=== PATIENT | female | born 1995 | race Hispanic/Latino ===

== ENCOUNTER 2016-11-19 17:53 | Emergency (ER) | payer OTHER ==
[~2016-11-19] VITALS: Ht 162.6 cm; Wt 104.5 kg
[2016-11-19] MEDS ORDERED: METOCLOPRAMIDE INJ 10MG/2ML VIAL (J2765) IV ONE (18:30)
[2016-11-19] MEDS ORDERED: diphenhydrAMINE INJ 50MG/ML VIAL (J1200) IV ONE (18:30)
[2016-11-19] MEDS ORDERED: NS 1,000 ML IV ONE (18:30)
[2016-11-19] MEDS ORDERED: KETOROLAC 30 MG/ML VIAL (J1885) IV ONE (18:30)
[2016-11-19 19:01] LABS: BASO % 0.3 % (0.0-1.0); EOS # 0.3 K/mm3 (0.0-0.50); LARGE UNSTAINED CELL # 0.1 K/mm3 (0.0-0.4); LARGE UNSTAINED CELL % 1.2 % (0.0-4.0); LYMPH % 28.1 % (24.0-44.0); MEAN CORPUSCULAR HEMOGLOBIN 27.8 pg (27.0-33.0); MEAN CORPUSCULAR HGB CONC 32.5 g/dl (32.0-36.5); MEAN CORPUSCULAR VOLUME 85.5 fl (80.0-96.0); MONO # 0.4 K/mm3 (0.0-0.8); MONO % 3.7 % (0.0-5.0); NEUTROPHILS # 6.4 K/mm3 (1.8-7.7); NEUTROPHILS % 63.7 % (36.0-66.0); PLATELET COUNT, AUTOMATED 357 k/mm3 (150-450); RED CELL DISTRIBUTION WIDTH 12.9 % (11.5-14.5); WHITE BLOOD COUNT 10.1 K/mm3 (4.0-10.0)
[2016-11-19 19:20] LABS: CONTROL LINE HCG INT CTR LINE PRESENT
[2016-11-19 19:25] LABS: METHADONE URINE NEGATIVE (NEGATIVE)
[2016-11-19 19:43] LABS: ALBUMIN/GLOBULIN RATIO 1.14 (1.00-1.93); ALKALINE PHOSPHATASE 59 U/L (45-117); ALT/SGPT 25 U/L (12-78); ANION GAP 6 MEQ/L (8-16); AST/SGOT 18 U/L (15-37); BILIRUBIN,DIRECT < 0.1 MG/DL (0.0-0.2); BILIRUBIN,TOTAL 0.3 MG/DL (0.2-1.0); BLOOD UREA NITROGEN 11 MG/DL (7-18); CALCIUM LEVEL 9.2 MG/DL (8.5-10.1); CARBON DIOXIDE LEVEL 29 MEQ/L (21-32); CHLORIDE LEVEL 105 MEQ/L (98-107); CREATININE FOR GFR 0.88 MG/DL (0.55-1.02); GLUCOSE, FASTING 97 MG/DL (70-105); SODIUM LEVEL 140 MEQ/L (136-145); TOTAL PROTEIN 7.5 GM/DL (6.4-8.2)
[2016-11-19 19:44] LABS: POTASSIUM SERUM 4.6 MEQ/L (3.5-5.1)
--- NOTE | 2016-11-19 20:10 | REPUSA ---
CLINICAL HISTORY: AMS. TECHNIQUE: Multiple axial brain CT scan sections were obtained from base to vertex without contrast a dministration. COMMENTS: The study shows normal configuration of sella turcica. There are no intra or extra-axial collections. There is no mass effect or midline shift. There is no evidence of hematoma formation. No hydrocephal us is present. No abnormal calcifications are noted. No significant abnormalities are seen either in the posterior fossa or supratentorial compartment. The sinuses and mastoid air cells are patent. IMPRESSION: No evidence of acute intracranial pathology. Thank you for your kind referral of this patient.
[2016-11-19] MEDS ORDERED: REGL10TA6 PO (20:42)
[2016-11-19 20:51] VITALS: BP 141/68
== END 2016-11-19 20:53 | disposition home or self-care (01) ==
LOC: M ED 17:53
DX: R51 Headache (principal)
CPT/HCPCS: 70450; 80048; 80076; 80307; 81001; 84443; 84703; 85025; 94760; 96361; 96374; 96375; 99283; G0480; J1200; J1885; J2765

== ENCOUNTER 2017-02-22 13:01 | Emergency (ER) | payer OTHER ==
[~2017-02-22] VITALS: Ht 162.6 cm; Wt 99.0 kg
[~2017-02-22 13:01] MED LIST: REGL10TA6 PO
[2017-02-22 16:11] LABS: MEAN CORPUSCULAR HEMOGLOBIN 27.7 pg (27.0-33.0); MEAN CORPUSCULAR HGB CONC 32.5 g/dl (32.0-36.5); PLATELET COUNT, AUTOMATED 376 10^3/uL (150-450); RED CELL DISTRIBUTION WIDTH 13.4 % (11.5-14.5); WHITE BLOOD COUNT 11.3 10^3/uL (4.0-10.0)
[2017-02-22] MEDS ORDERED: KEFL500C17 PO (17:26)
[2017-02-22 17:30] VITALS: BP 122/73
--- NOTE | 2017-02-22 18:14 | REP ---
1ST TRIMESTER ULTRASOUND: Real-time sonographic evaluation of the pelvis was performed utilizing transabdominal and endovaginal technique. There is a single living intrauterine gestation with estimated gestational age of 6 weeks 6 days based on a crown rump length of 9 mm. EDC 10/12/2017. heart rate is 139 beats per minute. There is no subchorionic hemorrhage. There is a dominant cyst in the right ovary which measures 6.4 x 5.9 x 6.1 cm. This appears relatively anechoic and simple in nature. Blood flow is seen in the right ovary with duplex Doppler evaluation, with no torsion, and also there is no torsion of the left ovary. Signed by Carlos Eduardo Chanel MD 02/23/2017 04:51 P
== END 2017-02-22 17:57 | disposition home or self-care (01) ==
LOC: M ED 13:01
DX: O23.41 Unspecified infection of urinary tract in pregnancy, first trimester (principal); Z3A.01 Less than 8 weeks gestation of pregnancy; Z87.891 Personal history of nicotine dependence

== ENCOUNTER 2017-03-19 18:42 | Emergency (ER) | payer OTHER ==
[~2017-03-19] VITALS: Ht 162.6 cm; Wt 100.0 kg
[~2017-03-19 18:42] MED LIST changes: +KEFL500C17 PO
[2017-03-19] MEDS ORDERED: PRENTAB55 PO (18:51)
[2017-03-19] MEDS ORDERED: NS 1,000 ML IV ONE (19:30)
[2017-03-19] MEDS ORDERED: METOCLOPRAMIDE INJ 10MG/2ML VIAL (J2765) IV ONE (19:30)
[2017-03-19 19:39] LABS: SPECIFIC GRAVITY UR AUTO RFX 1.008 (1.002-1.035); SQUAM EPITHELIAL CELL UR AURFX 0 /HPF (0-6)
[2017-03-19 20:01] LABS: BASO % 0.1 % (0.0-1.0); EOS # 0.1 10^3/uL (0.0-0.50); EOS % 0.6 % (0.0-3.0); IMMATURE GRANULOCYTE % 0.3 % (0-0); LYMPH # 2.1 10^3/uL (1.5-6.5); LYMPH % 14.5 % (24.0-44.0); MEAN CORPUSCULAR HEMOGLOBIN 28.6 pg (27.0-33.0); MEAN CORPUSCULAR HGB CONC 33.9 g/dl (32.0-36.5); MEAN CORPUSCULAR VOLUME 84.4 fl (80.0-96.0); MONO # 0.7 10^3/uL (0.0-0.8); MONO % 4.5 % (0.0-5.0); NEUTROPHILS # 11.6 10^3/uL (1.8-7.7); PLATELET COUNT, AUTOMATED 341 10^3/uL (150-450); RED CELL DISTRIBUTION WIDTH 13.3 % (11.5-14.5); WHITE BLOOD COUNT 14.5 10^3/uL (4.0-10.0)
[2017-03-19 20:40] LABS: ALBUMIN 3.7 GM/DL (3.2-5.2); ALBUMIN/GLOBULIN RATIO 1.06 (1.00-1.93); ALKALINE PHOSPHATASE 48 U/L (45-117); ALT/SGPT 17 U/L (12-78); ANION GAP 11 MEQ/L (8-16); AST/SGOT 11 U/L (7-37); BILIRUBIN,TOTAL 0.2 MG/DL (0.2-1.0); BLOOD UREA NITROGEN 5 MG/DL (7-18); CALCIUM LEVEL 8.8 MG/DL (8.5-10.1); CARBON DIOXIDE LEVEL 23 MEQ/L (21-32); CHLORIDE LEVEL 104 MEQ/L (98-107); CREATININE FOR GFR 0.53 MG/DL (0.55-1.02); GLOMERULAR FILTRATION RATE > 60.0 (>60); GLUCOSE, FASTING 82 MG/DL (70-105); HCG, SERUM QUANTITATIVE 53586 MIU/ML; POTASSIUM SERUM 3.9 MEQ/L (3.5-5.1); SODIUM LEVEL 138 MEQ/L (136-145); TOTAL PROTEIN 7.2 GM/DL (6.4-8.2)
--- NOTE | 2017-03-19 21:30 | REPUSA ---
Clinical history: cramping. Findings: Real-time transabdominal ultrasound images of the pelvis were obtained. There is a single i ntrauterine gestational sac. [employer] rump length measures 2.3 cm. No cardiac activity is seen however. There is no evidence of a subchorionic hemorrhage. The uterus demonstrates normal echotexture and ech ogenicity. The right ovary measures 5.3 x 4.0 x 3.6 cm. There is a simple right ovarian cyst measurin g 2.2 x 3.1 x 2.6 cm. The left ovary measures 3.5 x 2.1 x 2.2 cm. No adnexal masses are seen. Color D oppler flow is seen within both ovaries. There is no evidence of free fluid. Impression: 1. Single intrauterine measuring 9 weeks, without any cardiac activity. Findings are suspic ious for demise. 2. Right ovarian corpus luteum cyst.
[2017-03-19] MEDS ORDERED: DRAM50TA7 PO (22:11)
[2017-03-19 22:27] VITALS: BP 131/70
== END 2017-03-19 22:35 | disposition home or self-care (01) ==
LOC: M ED 18:42
DX: O21.9 Vomiting of pregnancy, unspecified (principal); O99.89 Other specified diseases and conditions complicating pregnancy, childbirth and the puerperium; R19.7 Diarrhea, unspecified; Z3A.09 9 weeks gestation of pregnancy; Z79.2 Long term (current) use of antibiotics
CPT/HCPCS: 76801; 80053; 81001; 84702; 85025; 93976; 96374; 99284; J2765

== ENCOUNTER 2017-03-25 00:18 | Emergency (ER) | payer OTHER ==
[~2017-03-25 00:18] MED LIST changes: +DRAM50TA7 PO; +PRENTAB55 PO
[2017-03-25] MEDS ORDERED: MISO200T56 PO (00:40)
[2017-03-25] MEDS ORDERED: NS 1,000 ML IV ONE (01:00)
[2017-03-25 01:43] LABS: BASO % 0.1 % (0.0-1.0); EOS # 0.2 10^3/uL (0.0-0.50); EOS % 1.3 % (0.0-3.0); IMMATURE GRANULOCYTE % 0.4 % (0-0); LYMPH # 2.8 10^3/uL (1.5-6.5); LYMPH % 19.5 % (24.0-44.0); MEAN CORPUSCULAR HEMOGLOBIN 27.9 pg (27.0-33.0); MEAN CORPUSCULAR HGB CONC 32.8 g/dl (32.0-36.5); MEAN CORPUSCULAR VOLUME 84.9 fl (80.0-96.0); MONO # 0.7 10^3/uL (0.0-0.8); MONO % 4.8 % (0.0-5.0); NEUTROPHILS # 10.6 10^3/uL (1.8-7.7); NEUTROPHILS % 73.9 % (36.0-66.0); PLATELET COUNT, AUTOMATED 364 10^3/uL (150-450); RED CELL DISTRIBUTION WIDTH 13.1 % (11.5-14.5); WHITE BLOOD COUNT 14.3 10^3/uL (4.0-10.0)
[2017-03-25 01:54] LABS: INR 1.05
--- NOTE | 2017-03-25 02:10 | REPUSA ---
CLINICAL HISTORY: . TECHNIQUE: Realtime sonographic images were obtained in multiple projections via TA approach. COMMENTS: Comparison to prior exam on 03/19/2017. The uterus measures 12.3x6.2x6.3 cm. Thickened endometrium measuring 19.6 mm. Right ovary measures 5.2x2.6x3.5 cm. There is right ovarian cyst measuring 3.4 cm. The left ovary measures 3.4x1.8x2.4 cm. IMPRESSION: Thickened endometrium. No increased vascularity. No intrauterine . Thank you for your kind referral of this patient.
[2017-03-25] MEDS ORDERED: MORPHINE 2 MG/ML 1ML SYRINGE IV ONE (02:30)
[2017-03-25 05:07] VITALS: BP 98/62
--- NOTE | 2017-03-25 06:42 | ED PDOC ---
Post-Departure Follow-Up dr bose faxed formal report of pelvic us for fu Mendy Bean MD Mar 25, 2017 06:41
== END 2017-03-25 05:11 | disposition home or self-care (01) ==
LOC: EDBD 00:18 → M ED 00:18
DX: O03.9 Complete or unspecified spontaneous abortion without complication (principal)

== ENCOUNTER → 2022-12-08 | Outpatient (REF) ==
[~2022-12-08] MED LIST changes: +MISO200T56 PO
== END ==
LOC: M LAB 14:28
PROVIDERS: ATTEND Nurse Practitioner Adult Health
DX: Z02.89 Encounter for other administrative examinations (principal)

== ENCOUNTER → 2023-06-06 | Outpatient (REF) ==
[~2023-06-06] MED LIST changes: -MISO200T56 PO; +MISO200T83 PO
== END ==
LOC: M EMP 08:44
PROVIDERS: ATTEND Family Medicine
DX: Z11.52 Encounter for screening for COVID-19 (principal)

== ENCOUNTER → 2023-06-06 | Outpatient (REF) | LOC: M EMP 08:45 | PROVIDERS: ATTEND Family Medicine | DX: Z11.52 Encounter for screening for COVID-19 (principal) ==

== ENCOUNTER → 2024-06-21 | Outpatient (REF) | payer OTHER | LOC: M LAB REF 17:24 | PROVIDERS: ATTEND Physician Assistant | DX: J06.9 Acute upper respiratory infection, unspecified (principal) ==